=== PATIENT | female | born 1945 | race African-American/Black ===

== ENCOUNTER 2019-04-14 19:26 | Inpatient (IN) | payer MEDICARE, BC ==
[~2019-04-14 19:26] MED LIST: Iopamidol-370 76% 500 ML 1 ML ONE
[2019-04-14] MEDS ORDERED: cefTRIAXone\\ROCEPHIN 1 GM VIAL ONE (20:31)
[2019-04-14 20:52] LABS: ALT (SGPT) 12 U/L (8-55); AST (SGOT) 16 U/L (5-34); Albumin 3.9 g/dL (3.4-4.8); Alkaline Phosphatase 73 U/L (40-110); Anion Gap 17 mmol/L (10-20); BUN (Urea Nitrogen) 13 mg/dL (9.8-20.1); CK (CPK) 111 U/L (29-168); Calc. Creatinine Clearance 0 mL/min (70-130); Calcium 9.2 mg/dL (7.8-10.44); Carbon Dioxide 21 mmol/L (23-31); Chloride 104 mmol/L (98-107); Estimated GFR-MDRD 90; Globulin 3.1 g/dL (2.4-3.5); Glucose 157 mg/dL (83-110); Magnesium 1.4 mg/dL (1.6-2.6); Potassium 3.4 mmol/L (3.5-5.1); Sodium 139 mmol/L (136-145)
[2019-04-14 21:03] LABS: Bacteria/HPF None Seen HPF (None Seen); Bilirubin Negative (Negative); Blood, Urine Negative (Negative); Clarity Clear (Clear); Glucose, Urine (Dipstick) Normal (Negative); Leukocyte Negative Leu/uL (Negative); Nitrite Negative (Negative); Protein, Urine (Dipstick) 30 mg/dL (Neg-Trace); RBC/HPF 0-3 HPF (0-3); Squamous Epithelial None Seen HPF (0-3); Urobilinogen Normal mg/dL (Less than 2); WBC/HPF 0-3 HPF (0-3)
[2019-04-14] MEDS ORDERED: Acetaminophen 500 MG TAB ONE (21:15)
[2019-04-14 21:27] LABS: #Lymphocytes 0.6 thou/uL (1.20-3.40); #Monocytes 0.6 thou/uL (0.11-0.59); #Neutrophils 9.6 thou/uL (1.40-6.50); %Basophils 0.1 % (0.0-1.0); %Eosinophils 0.1 % (0.0-10.0); %Lymphocytes 5.9 % (21.0-51.0); %Monocytes 5.4 % (0.0-10.0); %Neutrophils 88.5 % (42.0-75.0); Hemoglobin 13.5 g/dL (12.0-16.0); Mean Corpuscular HGB CONC 32.7 g/dL (32.0-36.0); Mean Corpuscular Hemoglobin 32.7 pg (27.0-31.0); Mean Corpuscular Volume 99.9 fL (78.0-98.0); Platelet Count 162 thou/uL (130-400); RBC Distribution Width 13.5 % (11.5-14.5); Red Blood Cell (RBC) Count 4.15 mill/uL (4.20-5.40); White Blood Cell (WBC) Count 10.8 thou/uL (4.8-10.8)
--- NOTE | 2019-04-14 21:39 | CT ---
CT Brain WO Con HISTORY: Altered mental status COMPARISON: None. FINDINGS: The ventricular and cisternal system is within normal limits. There are no signs of intrace rebral hemorrhage or extra-axial fluid collections. The mastoid air cells and visualized sinuses are clear. IMPRESSION: No acute intracranial abnormalities.
--- NOTE | 2019-04-14 21:46 | RAD ---
XR Chest 1 View Portable HISTORY: Chest pain status post fall COMPARISON: None. FINDINGS: Heart size is within normal limits. There are atherosclerotic changes of the aorta. The tonya gs are clear of infiltrates. No rib fractures. IMPRESSION: No active intrathoracic disease.
--- NOTE | 2019-04-14 21:47 | RAD ---
XR Pelvis AP STANDARD HISTORY: Fall with right hip pain. COMPARISON: None. FINDINGS: The pelvic ring is intact without evidence of fracture. Minimal arthritic changes of both h ips are seen. There are also arthritic changes of the lumbar spine. IMPRESSION: No evidence of fracture.
--- NOTE | 2019-04-14 21:50 | CT ---
CT Cervical Spine WO Con HISTORY: Fall with neck pain. COMPARISON: None. FINDINGS: The vertebral bodies are normal in height. There is postoperative change. There is a plate and screws which extend from C3 to C6. A bone graft has been placed within the vertebral bodies at C4 and C5. There is marked disc narrowing at C6-7 and C7-T1 levels. There is no evidence of canal maría nosis. Bilateral foraminal narrowing at the C6-7 level, also narrowing of both foramen at the C7-T1 level. There is no CT evidence of fracture. The lung apices are clear. IMPRESSION: No CT evidence of fracture the cervical spine.
--- NOTE | 2019-04-14 21:52 | CT ---
CT Abdomen Pelvis W Con HISTORY: Fall with right-sided pain. COMPARISON: None. FINDINGS: The lung bases show subsegmental atelectatic change. There are mild fatty changes of the li bennie. The spleen is within normal limits. Small hiatal hernia is noted. The pancreas and gallbladder regions appear unremarkable. Right and left adrenal glands and right and left kidneys are normal in size. There is no significant periaortic or mesenteric lymphadenopathy. CT of pelvis performed with contrast: Minimal sigmoid diverticulosis is noted. No free fluid. No frac tures identified. IMPRESSION: 1. No acute findings of abdomen or pelvis.
[2019-04-14 23:18] LABS: Lactic Acid 0.8 mmol/L (0.5-2.2)
[2019-04-15] MEDS ORDERED: Ondansetron PF 4 MG/2 ML Vial IVP PRN (02:09)
[2019-04-15] MEDS ORDERED: Ondansetron ODT 4 MG TAB SL PRN (02:09)
[2019-04-15] MEDS ORDERED: Lactated Ringer's 1,000 ML IV SCH (02:15)
[2019-04-15 02:58] VITALS: BMI 34.4
[2019-04-15] MEDS: Sodium Chloride 0.9% 1,000 ML IV SCH ×2 (03:29→08:22)
[2019-04-15] MEDS: Acetaminophen 325 MG TAB PO PRN ×2 (04:18→16:51)
[2019-04-15] MEDS ORDERED: Dextrose 50% Abboject 50 ML SYRINGE SLOW IVP PRN (04:27)
[2019-04-15] MEDS ORDERED: Dextrose 5% in Water 1,000 ML IV PRN (04:27)
--- NOTE | 2019-04-15 04:31 | PDOC.EVN ---
Event Note - Event Note Event Note: Patient declined an LP in the ED. She says she did not want to have to be in the position with her spine flexed. She now says she would be willing to have an LP.
[2019-04-15 04:40] LABS: #Lymphocytes 1.1 thou/uL (1.20-3.40); #Monocytes 0.6 thou/uL (0.11-0.59); #Neutrophils 9.2 thou/uL (1.40-6.50); %Basophils 0.2 % (0.0-1.0); %Eosinophils 0.2 % (0.0-10.0); %Lymphocytes 10.1 % (21.0-51.0); %Monocytes 5.5 % (0.0-10.0); %Neutrophils 84.1 % (42.0-75.0); Hemoglobin 12.7 g/dL (12.0-16.0); Mean Corpuscular HGB CONC 35.4 g/dL (32.0-36.0); Mean Corpuscular Hemoglobin 35.6 pg (27.0-31.0); Mean Platelet Volume 8.1 fL (7.4-10.4); Platelet Count 123 thou/uL (130-400); RBC Distribution Width 13.4 % (11.5-14.5); Red Blood Cell (RBC) Count 3.56 mill/uL (4.20-5.40)
[2019-04-15 04:50] LABS: Anion Gap 17 mmol/L (10-20); BUN (Urea Nitrogen) 8 mg/dL (9.8-20.1); Calc. Creatinine Clearance 116 mL/min (70-130); Calcium 8.3 mg/dL (7.8-10.44); Carbon Dioxide 19 mmol/L (23-31); Chloride 108 mmol/L (98-107); Estimated GFR-MDRD Greater than 90; Glucose 138 mg/dL (83-110); Potassium 3.6 mmol/L (3.5-5.1); Sodium 140 mmol/L (136-145)
[2019-04-15 04:59] LABS: Lactic Acid 2.7 mmol/L (0.5-2.2)
[2019-04-15] MEDS: Cefepime 2 GM in Sodium Chloride 0.9% 100 ML IVPB SCH ×2 (05:20→14:57)
--- NOTE | 2019-04-15 05:40 | HP ---
CHIEF COMPLAINT: Altered mental status and fall. HISTORY OF PRESENT ILLNESS: This patient is a 74-year-old female, who presented via the emergency department. The patient is originally from this area, but currently lives in [place]. She was here visiting family. She was at her sister's home. Apparently, had a fall within the shower. It sounds like she did not actually go all the way to the ground and was able to catch herself, but could not get out and her family friend was not able to get her up out of the bath tub, so they called for an ambulance. The patient's sister reported that she has not been acting herself and seems to be a bit awkward through the day. The patient herself believes that is the case as well. She believes it was true earlier. She does not really fully remember the events of the day, but feels like she is 90% back to her baseline at this time. The patient was initially taken to the emergency department. She was placed in a C-collar and she reports some right hip pain. She had multiple imaging included a CT head, neck, chest, abdomen plain films of the lower extremities. In the emergency department, the patient was noted to be febrile and she received 2 L of fluid of vancomycin and Rocephin. REVIEW OF SYSTEMS: The patient has had a fluctuating appetite. She drinks Atkins drinks several times a day rather than eating normal meals. She also states that she tries to go to the gym for exercise, but will go for long stretches over weeks, where she feels generally weak and is unable to do that. She also tends to have more loose stools than she would consider to be normal. All other systems reviewed. All pertinent positives and negatives otherwise, noted in HPI. PAST MEDICAL HISTORY: Diabetes, hyperlipidemia, chronic pain, some intermittent depression. She also has a history of a C-spine surgery in 2001 that subsequently caused severe infection and sounds like possibly sepsis. She was critically ill and was apparently on the ventilator with discussions about the trach. She believes this was a staph infection and subsequent to that, she has been kept on amoxicillin daily since that time for what sounds like suppression. Hypothyroidism. PAST SURGICAL HISTORY: Hysterectomy, appendectomy, and C-spine fusion with hardware. FAMILY HISTORY: Mother had breast cancer. Father had pancreatic cancer. SOCIAL HISTORY: She is a nonsmoker, nondrinker, and nondrug user. She is single and . She is a full code. Her daughter, Santo would be her surrogate decision maker should that become necessary. PHYSICAL EXAMINATION: VITAL SIGNS: The patient had a temperature of 102.6 when she was in the emergency department. Most recent vitals, temperature is 98.6, pulse 76, respirations 18, O2 saturation 96% on room air, BP is 136/73. GENERAL APPEARANCE: Age-appropriate female, no distress. Pleasant, cooperative. HEENT: JOE. She has a pinguecula or pterygium over the left medial limbus. She has no OP lesions. NECK: Supple and symmetric. HEART: Regular rate and rhythm. LUNGS: Clear to auscultation bilaterally with good chest wall expansion and air exchange. ABDOMEN: Soft, nontender, and nondistended with positive bowel sounds. No masses. No organomegaly. EXTREMITIES: Have no cyanosis, clubbing, or edema. PSYCHIATRIC: The patient does continue to appear to be very slightly confused, although conversant and appropriate. NEUROLOGIC: She moves all extremities appropriately other than being slightly confused about the situation today. She generally appears cognitively intact with normal speech and cranial nerves are functioning normally. LABORATORY DATA: White count 10.8, hemoglobin 13.5, platelets 162. Sodium 139, potassium 3.4, chloride 104, CO2 is 21, BUN is 13, creatinine 0.76, glucose 175, lactic acid 3.0, calcium 9.2, Magnesium is 1.4, AST 16, ALT 12, CK is 111. Urinalysis shows trace protein, trace ketones, otherwise negative. Flu screen negative and as above. CT abdomen and pelvis, CT C-spine plain films of the pelvis and chest were negative and CT of the brain is negative. IMPRESSION AND PLAN: 1. Febrile illness with some altered mental status/acute metabolic encephalopathy. The patient has no specific symptomatology to suggest a source of infection. Her being altered and encephalopathic a bit may be related to any underlying infection. However, given the history of the C-spine hardware with infection, I am concerned that there is a possibility that there could be some relation to that, although CT scan showed no specific evidence of abscess or osteomyelitis. She has been given vancomycin and cefepime. We will continue those for the time being. We will continue to follow up on the blood cultures. We will need to repeat the CBC. Currently, she has high normal white blood cell count, which is not significantly helpful. However, it is possible that this could still be a viral illness. She denies any ill contacts and she also has no nuchal rigidity. Urine is clear and chest x-ray is clear. 2. Diabetes mellitus. We will place her on a diabetic diet with Accu-Cheks and sliding scale. 3. Hyperlipidemia. Continue atorvastatin. 4. Hypothyroidism. Continue with her Synthroid. Job ID: [id number]
[2019-04-15] MEDS ORDERED: Vancomycin HCl 1 GM in Premix Bag 1 BAG IVPB SCH ×2 (08:00→09:00)
[2019-04-15] MEDS ORDERED: Cefepime 2 GM in Sodium Chloride 0.9% 100 ML IVPB SCH (09:00)
[2019-04-15] MEDS: HYDROcodone/Acetaminophen 5/325 mg Tablet PO PRN ×3 (09:22→20:01)
[2019-04-15] MEDS: Benzonatate 100 MG CAP PO PRN (13:53)
--- NOTE | 2019-04-15 14:57 | CON ---
DATE OF CONSULTATION: 04/15/2019 REASON FOR CONSULTATION: Fever. HISTORY OF PRESENT ILLNESS: A 74-year-old with history of type 2 diabetes, hypothyroidism, and neck injury of about 18 years ago, which required fusion. Reportedly, the patient developed infection of the wound site following the intervention in 2001 and required IV and followed by chronic suppression with oral amoxicillin, which she has been taking twice daily since 2001 without fail. 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 She had a little bit of injury in the right shoulder, was brought to the emergency room. Initial temperature 102.6, pulse 75, blood pressure 176/69, and O2 saturation 95. She had a neck collar in place. A little bit of tenderness in the abdomen, mostly in the lower abdomen. The right hip was a little bit tender. Neck was not tender. Other findings; white cell count 10.8, hemoglobin 13.5, platelets 162, and 88% neutrophils. Sodium 139, creatinine 0.76, glucose 157, and magnesium 1.4. Liver profile normal. Albumin 3.9. Urinalysis was completely normal except for protein of 30. The patient had a number of imaging studies including abdomen and pelvis CT, chest x-ray, and brain CT, none of those showed any significant abnormality. Currently, Ms. Jorgensen is shivering in bed. She is awake and oriented. Follows commands. Family is in the room with her. She denies any headaches. No visual symptoms, sore throat, odynophagia, or dysphagia. No dental pain. Little bit of upper back pain, which is somewhat chronic. No neck pain. Little bit of right shoulder pain. She has noticed persistent coughing spells over the past few days, sometimes which she describes as a beige sputum. Some rhinorrhea. No ear pain. No chest pain or dyspnea. No abdominal pain. No dysuria or frequency. The patient has intermittent loose stools, which she associates with the amoxicillin. No other joint symptoms. She had transient confusional state, which has resolved after admission. PAST MEDICAL HISTORY: Type 2 diabetes, hypothyroidism, injury while exiting in an elevator while at work in 2001, which forced her to have a neck fusion in 2001. Postop infection of the neck fusion, which required IV antimicrobials and protracted suppressive amoxicillin, which she has been taking since 2001. She had a hysterectomy. ALLERGIES: NONE. MEDICATIONS: Currently, she is receiving; 1. Tylenol. 2. Centuria. 3. Alogliptin. 4. Lipitor. 5. Tessalon. 6. Os-Jose. 7. Cefepime. 8. Gabapentin. 9. Vancomycin. PHYSICAL EXAMINATION: VITAL SIGNS: T-max 102.2 now 98.1, blood pressure 113/67, pulse 60, respirations 18, and O2 saturation 96. SKIN: Normal. There is no lymphadenopathy. HEENT: Ocular movements conjugate. Sclerae white. Pupils are equal. Conjunctivae normal. Oral cavity still with quite a few teeth in place with some decay. Mild oropharyngeal erythema. Nasal passages are patent. Ear exam normal. LUNGS: Symmetric air entry without obvious crackles or wheezing. HEART: S1 and S2. Regular rate without murmurs. No S3 or S4. ABDOMEN: Soft, not distended or tender. No ascites. No bladder distention. EXTREMITIES: No joint inflammatory activity noted. Pulses are 1+ in dorsalis pedis. Strength in upper and lower extremities are preserved. Plantar responses are flexor. NEUROLOGIC: She is oriented, follows commands. Speech appears to be normal. LABORATORY DATA: The labs have been reviewed above. Thus far, microbiology with negative influenza A and B direct antigen. Negative blood cultures to-date and urine culture no growth at 24 hours. ASSESSMENT: Type 2 diabetes, prior neck fusion many years ago on chronic suppressive amoxicillin, and new onset of respiratory symptoms with fever. DISCUSSION: Differential diagnosis includes a viral infection, particularly respiratory virus versus bacteremia from a not yet disclosed site. We will check respiratory virus PCR. Monitor blood cultures. If they remain negative, may consider discontinuing antimicrobial therapy. We will see what the results of the respiratory virus panel turns out to be. Other possibilities would be a hidden malignancy or autoimmune process, but that will only be considered if this clinical problem persists without a resolution. Job ID: [id number]
[2019-04-15] MEDS: HumaLOG 300 UNITS/3 ML VIAL SC PRN (15:05)
[2019-04-15] MEDS ORDERED: Mometasone/Formoterol 120 PUFF INHALER INH SCH (15:30)
[2019-04-15] MEDS: Mometasone/Formoterol 120 PUFF INHALER INH SCH ×2 (16:11→18:41)
[2019-04-15] MEDS: metFORMIN 500 MG TAB PO SCH ×2 (16:33→19:56)
[2019-04-15] MEDS: Atorvastatin Calcium 40 MG TAB PO SCH (19:37)
--- NOTE | 2019-04-15 19:41 | PDOC.EVN ---
Event Note - Event Note Event Note: Called by RN for patient stating she takes gabapentin 400 mg twice daily -order changed.
[2019-04-15] MEDS: Gabapentin 400 MG CAP PO SCH (19:56)
[2019-04-15] MEDS ORDERED: Vancomycin HCl 1.25 GM in Sodium Chloride 0.9% 250 ML 250 ML IVPB SCH (20:00)
[2019-04-15] MEDS: Estradiol 1 MG TAB PO SCH (20:09)
[2019-04-15] MEDS ORDERED: metFORMIN 500 MG TAB PO SCH (20:15)
[2019-04-16] MEDS: Cefepime 2 GM in Sodium Chloride 0.9% 100 ML IVPB SCH ×2 (05:04→16:15)
[2019-04-16] MEDS: Levothyroxine Sodium 112 MCG TAB PO SCH (05:04)
[2019-04-16] MEDS: HYDROcodone/Acetaminophen 5/325 mg Tablet PO PRN ×2 (05:05→17:06)
[2019-04-16] MEDS: Sodium Chloride 0.9% 1,000 ML IV SCH ×2 (05:14→16:16)
[2019-04-16] MEDS: Mometasone/Formoterol 120 PUFF INHALER INH SCH (06:49)
[2019-04-16 07:20] LABS: Vancomycin, Trough 14.2 ug/mL
[2019-04-16] MEDS ORDERED: Vancomycin 1.5 GRAM/300 ML BAG 1.5 GM in Premix Bag 1 BAG IVPB SCH (08:00)
[2019-04-16] MEDS ORDERED: Gabapentin 400 MG CAP PO SCH (09:00)
--- NOTE | 2019-04-16 09:59 | RAD ---
FLUOROSCOPICALLY GUIDED LUMBAR PUNCTURE: HISTORY: Infection. CSF analysis required COMPARISON: None. EXPOSURE: 0.4 minutes, 88.1 mcg/m2. FINDINGS: Two-view single needle operator lumbar spine radiograph demonstrates 5 lumbar-type vertebrae. Vertebral body height is maintained. No fracture. Degenerative changes of the posterior elements at the lumbosacral region. Successful lumbar puncture. Total of 9 cc of clear CSF was acquired. No immediate or postprocedure co mplications. TECHNIQUE: Consent obtained to perform a lumbar puncture with fluoroscopic guidance. The L2-L3 level was deemed appropriate. Skin was prepped and draped in sterile fashion. 1% lidocaine, buffered with sodium bicarbonate was used for local anesthesia. Under fluoroscopic guidance, 22-gauge spinal needle was ad vanced into the CSF space. A total of 9 cc of clear CSF was collected. Patient tolerated the procedure well. No immediate or post procedure complication. IMPRESSION: Successful lumbar puncture. Transcribed Date/Time: 04/16/2019 10:06 AM
[2019-04-16 10:01] LABS: Unspun CSF Color COLORLESS (Colorless)
[2019-04-16 10:02] LABS: Color Of CSF Supernatant COLORLESS (Colorless); Tube # 2
[2019-04-16 10:09] LABS: CSF, Glucose 86 mg/dl (40-70); CSF, Protein 33 mg/dL (15-40)
[2019-04-16] MEDS: Alogliptin 25 MG TAB PO SCH (10:09)
[2019-04-16] MEDS: Estradiol 1 MG TAB PO SCH ×2 (10:09→21:04)
[2019-04-16] MEDS: metFORMIN 500 MG TAB PO SCH ×2 (10:09→16:15)
[2019-04-16] MEDS: Gabapentin 400 MG CAP PO SCH ×2 (10:09→21:05)
[2019-04-16] MEDS: Calcium Carbonate 500 MG TAB PO SCH (10:09)
[2019-04-16 10:12] LABS: CSF Source CSF; Clarity Clear (Clear); Tube # 4
[2019-04-16 10:13] LABS: RBC Count - Manual 0 /cumm (None Seen); WBC/NonHematics Count - Manual 0 /cumm (0-5)
[2019-04-16] MEDS: Benzonatate 100 MG CAP PO PRN ×2 (10:19→16:15)
--- NOTE | 2019-04-16 10:28 | PDOC.HOSPP ---
- Subjective Encounter Date: 04/16/19 Encounter Time: 11:00 Subjective: fever is subsiding, has cough which is mostly dry - Objective Vital Signs & Weight: Vital Signs (12 hours) Temp Pulse Resp BP BP Pulse Ox 04/16/19 08:00 97 04/16/19 07:26 98.9 F 63 18 133/69 97 04/16/19 06:49 73 16 93 L 04/16/19 04:53 99.2 F 69 16 120/61 93 L 04/16/19 00:00 98.7 F 60 16 103/49 L 93 L Weight Weight 200 lb 9.93 oz I&O: 04/15/19 04/16/19 04/17/19 06:59 06:59 06:59 Intake Total 1175 Balance 1175 Result Diagrams: 04/15/19 04:20 04/15/19 04:20 Additional Labs: Accuchecks 04/16/19 04/15/19 04/15/19 04:51 20:03 16:24 POC Glucose 124 H 136 H 181 H 04/15/19 11:49 POC Glucose 223 H Hospitalist ROS - Medication Medications: Active Medications Generic Name Dose Route Start Last Admin Trade Name Freq PRN Reason Stop Dose Admin Acetaminophen 650 mg 04/15/19 04:09 04/15/19 16:51 Tylenol PO 650 mg Q6H PRN Administration .FEVER Hydrocodone Bitart/Acetaminophen 1 tab 04/15/19 08:35 04/16/19 05:05 [place] 5/325 PO 1 tab Q6H PRN Administration Moderate to Severe Pain (6-10) Alogliptin Benzoate 25 mg 04/16/19 09:00 04/16/19 10:09 Alogliptin PO 25 mg DAILY MARTHA Administration Atorvastatin Calcium 40 mg 04/15/19 21:00 04/15/19 19:37 Lipitor PO 40 mg HS MARTHA Administration Benzonatate 100 mg 04/15/19 12:50 04/16/19 10:19 Tessalon PO 100 mg TIDPRN PRN Administration Cough Calcium Carbonate 500 mg 04/16/19 09:00 04/16/19 10:09 Oscal-500 PO 500 mg DAILY MARTHA Administration Estradiol 1 mg 04/15/19 21:00 04/16/19 10:09 Estrace PO 1 mg BID MARTHA Administration Gabapentin 400 mg 04/15/19 21:00 04/16/19 10:09 Neurontin PO 400 mg BID MARTHA Administration Sodium Chloride 1,000 mls @ 75 mls/hr 04/15/19 02:45 04/16/19 05:14 Normal Saline 0.9% IV 1,000 mls .[id number] MARTHA Administration Cefepime HCl 2 gm/ Sodium 100 mls @ 200 mls/hr 04/15/19 05:00 04/16/19 05:04 Chloride IVPB 100 mls 0500,1700 MARTHA Administration Vancomycin HCl 1.5 gm/ Device 300 mls @ 200 mls/hr 04/16/19 08:00 04/16/19 10 :08 IVPB 300 mls 0800,2000 MARTHA Administration Insulin Human Lispro 0 units 04/15/19 04:27 04/15/19 15:05 Humalog SC 3 unit .MILD SLIDING SCALE PRN Administration Mild Correctional Scale Levothyroxine Sodium 112 mcg 04/16/19 06:00 04/16/19 05:04 Synthroid PO 112 mcg 0600 MARTHA Administration Metformin HCl 500 mg 04/16/19 08:00 04/16/19 10:09 Glucophage PO 500 mg BID-WM MARTHA Administration Mometasone Furoate/Formoterol Fumar 1 puff 04/15/19 18:30 04/16/19 06:49 Dulera 200 Mcg/5 Mcg Inhaler INH 1 puff BID-RT MARTHA Administration - Exam General Appearance: awake alert Eye: PERRL, anicteric sclera ENT: no oropharyngeal lesions, moist mucosa Neck: supple, no JVD Heart: RRR, no murmur Respiratory: no wheezes, no rales Gastrointestinal: soft, non-tender, non-distended, normal bowel sounds Extremities: no cyanosis, no edema Neurological: cranial nerve grossly intact, no focal deficits Psychiatric: normal affect, A&O x 3 Hosp A/P (1) Fever Code(s): R50.9 - FEVER, UNSPECIFIED Status: Acute Qualifiers: Fever type: unspecified Qualified Code(s): R50.9 - Fever, unspecified (2) DM type 2 (diabetes mellitus, type 2) Status: Chronic Qualifiers: Diabetes mellitus petroleum terminal plant operator insulin use: without petroleum terminal plant operator use (3) Hypothyroidism Code(s): E03.9 - HYPOTHYROIDISM, UNSPECIFIED Status: Chronic Qualifiers: Hypothyroidism type: unspecified Qualified Code(s): E03.9 - Hypothyroidism , unspecified (4) Obesity (BMI 30.0-34.9) Code(s): E66.9 - OBESITY, UNSPECIFIED Status: Chronic - Plan is on vanc and cefipime blood, urine cultures are -ve csf no signs of infection viral pcr is -ve iv fluids, lipitor, alogliptin, metformin, neurontin and synthroid hemostable
[2019-04-16] MEDS: Guaifenesin DM 100-10/5 ML UDCUP PO PRN ×2 (10:44→18:51)
[2019-04-16] MEDS: Albuterol Sulfate 1.25 MG/3 ML NEB NEB SCH ×2 (12:34→23:27)
--- NOTE | 2019-04-16 17:09 | PQF ---
CLINICAL DOCUMENTATION IMPROVEMENT CLARIFICATION FORM: ICD-10 Updated PLEASE DO AN ADDENDUM TO THE PROGRESS NOTE WITH ANY DOCUMENTATION UPDATES OR ADDITIONS AND CARRY THROUGH TO DC SUMMARY. THANK YOU. DATE: 04/16/19 ATTN: DR. RAMIREZ Please exercise your independent, professional judgment in responding to the clarification form. Clinical indicators are provided on the bottom of this form for your review Please check appropriate box(s) to clarify if the following diagnosis has been ruled in or ruled out: "SEPSIS" [ x] Ruled in diagnosis [ x] Continue to treat [ ] Resolved [ ] Ruled out diagnosis [ ] Cannot rule out diagnosis [ x ] Other diagnosis Pna on zithromax now [ ] Unable to determine In addition, please specify: Present on Admission (POA): [ x ] Yes [ ] No [ ] Unable to determine For continuity of documentation, please document condition throughout progress notes and discharge summary. Thank You. CLINICAL INDICATORS - SIGNS / SYMPTOMS / LABS / RESULTS AND LOCATION IN MR ER NOTE: "SEPSIS WITHOUT SOURCE" RR 26 TEMP 102.6 LACTIC ACID 04/14: 3.0 WBC 04/15: 11.0 RISKS: H/O DIABETES (PROGRESS NOTE 04/16) H/O POSTOP NECK INFECTION (CONSULTATION REPORT 04/15) NEW ONSET OF RESPIRATORY SYMPTOMS (CONSULTATION REPORT 04/15) TREATMENT: LUMBAR PUNCTURE IV VANCOMYCIN (ER-PRESENT) IV FLUIDS (ER-PRESENT) IV ROCEPHIN (ER) IV CEFEPIME (04/15-PRESENT) BLOOD AND URINE CULTURES (04/14) SPINAL FLUID CULTURES (04/16) ID CONSULT (04/15) (This form is maintained as a part of the permanent medical record) 2014 [employer]. All Rights Reserved [email or web address] [email or web address] Office: [phone] PONCHO
--- NOTE | 2019-04-16 18:11 | PRG ---
DATE OF SERVICE: 04/16/2019 SUBJECTIVE: The patient coughing still, not a lot of sputum production. No headaches. Some neck pain and upper thoracic spine pain, not much different than what she always has. No abdominal pain or diarrhea. OBJECTIVE: VITAL SIGNS: T-max 102.9 yesterday at 4:00 p.m., blood pressure 140 /70, pulse 76, respirations 14 to 20, and O2 saturation 93% to 100%. HEENT: Ocular movements conjugate. GENERAL: Awake, alert, oriented, follows commands. LUNGS: With worsening inspiratory crackles in the right upper lung field posteriorly, which were not present yesterday. HEART: S1 and S2, regular rate. ABDOMEN: Soft. Not distended or tender. LABORATORY DATA: Sodium 140, creatinine 0.6. White cell count is 11, platelets 123 with 84% neutrophils. CSF evaluation was done, was ordered and was essentially normal. The respiratory virus PCR panel was negative. ASSESSMENT AND DISCUSSION: Type 2 diabetes, neck fusion on chronic suppressive amoxicillin, respiratory symptoms with fever. Now, there are clear-cut abnormal lung exam findings. We will go ahead and order a CT of chest since the original chest x-ray did not show any infiltrates. Most likely, she has a respiratory tract infection, likely bacterial. Discontinue vancomycin and add azithromycin. Job ID: [id number] MTDD
[2019-04-16] MEDS: Azithromycin 500 MG in Sodium Chloride 0.9% 250 ML 250 ML IVPB SCH (18:51)
--- NOTE | 2019-04-16 19:33 | CT ---
CT THORAX WITHOUT IV CONTRAST: HISTORY: Abnormal lung exam. Cough for a couple days. COMPARISON: None. FINDINGS: There are reticulonodular densities as well as patchy densities seen in the right perihilar location, predominantly in the right upper lobe, which may be related to an infectious process. Minimal patchy , nodular densities are also seen in the left perihilar location. Small bilateral pleural effusions are identified. A calcified subcarinal lymph node is present. There is limited evaluation of the mediastinal structures secondary to the lack of intravenous contra st however there is question of a mildly enlarged precarinal lymph node, measuring 12 mm in short axi s dimension. Vascular calcifications are seen in the thoracic aorta. Trace pericardial effusion is present. Calcified granulomata are seen in the spleen. There is elevation of the right hemidiaphragm. A calcified granuloma is seen in the left lower lobe. Degenerative changes are seen in the spine. No suspicious lytic or sclerotic osseous lesions are iden tified. IMPRESSION: 1. Reticulonodular densities as well as mild patchy irregular densities seen in the perihilar regions bilaterally, greater involving the right upper lobe, which may be related to an infectious process. Followup to resolution is recommended. 2. Small bilateral pleural effusions. 3. Limited evaluation for lymphadenopathy due to lack of intravenous contrast, but there is suggestio n of a mildly prominent subcarinal lymph node which may be reactive in origin. POS: [facility]
[2019-04-16] MEDS: Atorvastatin Calcium 40 MG TAB PO SCH (21:04)
[2019-04-17] MEDS: Benzonatate 100 MG CAP PO PRN ×2 (03:56→13:59)
[2019-04-17] MEDS: Guaifenesin DM 100-10/5 ML UDCUP PO PRN ×2 (05:11→18:38)
[2019-04-17] MEDS: Levothyroxine Sodium 112 MCG TAB PO SCH (05:12)
[2019-04-17] MEDS: Cefepime 2 GM in Sodium Chloride 0.9% 100 ML IVPB SCH ×2 (05:12→16:41)
[2019-04-17] MEDS: Sodium Chloride 0.9% 1,000 ML IV SCH ×2 (05:15→20:35)
[2019-04-17] MEDS: HYDROcodone/Acetaminophen 5/325 mg Tablet PO PRN ×2 (06:26→18:03)
[2019-04-17] MEDS: Mometasone/Formoterol 120 PUFF INHALER INH SCH ×2 (07:07→18:57)
[2019-04-17] MEDS: Albuterol Sulfate 1.25 MG/3 ML NEB NEB SCH ×3 (07:09→21:58)
[2019-04-17] MEDS: Gabapentin 400 MG CAP PO SCH ×2 (08:47→20:35)
[2019-04-17] MEDS: Calcium Carbonate 500 MG TAB PO SCH (08:48)
[2019-04-17] MEDS: Alogliptin 25 MG TAB PO SCH (08:48)
[2019-04-17] MEDS: Estradiol 1 MG TAB PO SCH ×2 (08:48→20:35)
[2019-04-17] MEDS: metFORMIN 500 MG TAB PO SCH ×2 (08:48→16:46)
--- NOTE | 2019-04-17 11:43 | PDOC.HOSPP ---
- Subjective Encounter Date: 04/17/19 Encounter Time: 07:50 Subjective: cough is better, no sob has not ambulated much except going to commode next to her bed - Objective Vital Signs & Weight: Vital Signs (12 hours) Temp Pulse Resp BP Pulse Ox 04/17/19 07:43 94 L 04/17/19 07:26 98.6 F 69 20 152/73 H 04/17/19 07:09 67 18 92 L 04/17/19 07:07 67 18 92 L 04/17/19 04:27 98.8 F Weight Weight 200 lb 9.93 oz I&O: 04/16/19 04/17/19 04/18/19 06:59 06:59 06:59 Intake Total 1175 1300 Balance 1175 1300 Result Diagrams: 04/15/19 04:20 04/15/19 04:20 Additional Labs: Accuchecks 04/17/19 04/16/19 04/16/19 04:28 20:16 17:11 POC Glucose 111 H 116 H 118 H 04/16/19 11:14 POC Glucose 118 H Hospitalist ROS - Medication Medications: Active Medications Generic Name Dose Route Start Last Admin Trade Name Freq PRN Reason Stop Dose Admin Acetaminophen 650 mg 04/15/19 04:09 04/15/19 16:51 Tylenol PO 650 mg Q6H PRN Administration .FEVER Hydrocodone Bitart/Acetaminophen 1 tab 04/15/19 08:35 04/17/19 06:26 [place] 5/325 PO 1 tab Q6H PRN Administration Moderate to Severe Pain (6-10) Albuterol Sulfate 1.25 mg 04/16/19 15:00 04/17/19 07:09 Albuterol Sulfate NEB 1.25 mg [id number] MARTHA Administration Alogliptin Benzoate 25 mg 04/16/19 09:00 04/17/19 08:48 Alogliptin PO 25 mg DAILY MARTHA Administration Atorvastatin Calcium 40 mg 04/15/19 21:00 04/16/19 21:04 Lipitor PO 40 mg HS MARTHA Administration Benzonatate 100 mg 04/15/19 12:50 04/17/19 03:56 Tessalon PO 100 mg TIDPRN PRN Administration Cough Calcium Carbonate 500 mg 04/16/19 09:00 04/17/19 08:48 Oscal-500 PO 500 mg DAILY MARTHA Administration Estradiol 1 mg 04/15/19 21:00 04/17/19 08:48 Estrace PO 1 mg BID MARTHA Administration Gabapentin 400 mg 04/15/19 21:00 04/17/19 08:47 Neurontin PO 400 mg BID MARTHA Administration Guaifenesin/Dextromethorphan 15 ml 04/16/19 10:06 04/17/19 05:11 Robitussin Dm PO 15 ml Q4H PRN Administration Cough Sodium Chloride 1,000 mls @ 75 mls/hr 04/15/19 02:45 04/17/19 05:15 Normal Saline 0.9% IV 1,000 mls .[id number] MARTHA Administration Cefepime HCl 2 gm/ Sodium 100 mls @ 200 mls/hr 04/15/19 05:00 04/17/19 05:12 Chloride IVPB 100 mls 0500,1700 MARTHA Administration Azithromycin 500 mg/ Sodium 250 mls @ 250 mls/hr 04/16/19 18:00 04/16/19 18: 51 Chloride IVPB 250 mls Q24HR MARTHA Administration Insulin Human Lispro 0 units 04/15/19 04:27 04/15/19 15:05 Humalog SC 3 unit .MILD SLIDING SCALE PRN Administration Mild Correctional Scale Levothyroxine Sodium 112 mcg 04/16/19 06:00 04/17/19 05:12 Synthroid PO 112 mcg 0600 MARTHA Administration Metformin HCl 500 mg 04/16/19 08:00 04/17/19 08:48 Glucophage PO 500 mg BID-WM MARTHA Administration Mometasone Furoate/Formoterol Fumar 1 puff 04/15/19 18:30 04/17/19 07:07 Dulera 200 Mcg/5 Mcg Inhaler INH 1 puff BID-RT MARTHA Administration - Exam General Appearance: NAD, awake alert Eye: PERRL, anicteric sclera ENT: no oropharyngeal lesions, moist mucosa Neck: supple, no JVD Heart: RRR, no murmur Respiratory: no wheezes, no rales, rhonchi Gastrointestinal: soft, non-tender, non-distended, normal bowel sounds Extremities: no cyanosis, no edema Neurological: cranial nerve grossly intact, no focal deficits Psychiatric: normal affect, A&O x 3 Hosp A/P (1) PNA (pneumonia) Code(s): J18.9 - PNEUMONIA, UNSPECIFIED ORGANISM Status: Acute Plan: cap (2) DM type 2 (diabetes mellitus, type 2) Status: Chronic 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 blood, urine cultures are -ve csf no signs of infection viral pcr is -ve iv fluids, lipitor, alogliptin, metformin, neurontin and synthroid hemostable PT eval, to amb as tolerated dc plan in am if ambulating well
[2019-04-17] MEDS: HumaLOG 300 UNITS/3 ML VIAL SC PRN (12:05)
--- NOTE | 2019-04-17 17:11 | PRG ---
DATE OF SERVICE: 04/17/2019 SUBJECTIVE: Feeling a little better, not as much coughing spells. No sputum production. No headaches. Neck pain is better. No abdominal pain or diarrhea. OBJECTIVE: VITAL SIGNS: Continues with normal temperature, BP 150/73, pulse 69. LUNGS: Crackles in the right side. HEART: S1 and S2, regular rate. ABDOMEN: Soft and not distended. NEUROLOGIC: Nonfocal. LABORATORY DATA: White cell count 11,000, hemoglobin 12.7, and creatinine 0.6. No new microbiology information. ASSESSMENT AND DISCUSSION: Type 2 diabetes, neck fusion, on chronic suppressive amoxicillin, and cough and fever, now with proven pneumonia in the upper lobes, right and left sides. Continue cefepime and azithromycin. Discharge planning with levofloxacin, maybe tomorrow or day after. Job ID: [id number]
[2019-04-17] MEDS: Azithromycin 500 MG in Sodium Chloride 0.9% 250 ML 250 ML IVPB SCH (17:55)
[2019-04-17] MEDS: Atorvastatin Calcium 40 MG TAB PO SCH (20:35)
[2019-04-18] MEDS: Guaifenesin DM 100-10/5 ML UDCUP PO PRN ×3 (05:11→19:30)
[2019-04-18] MEDS: Benzonatate 100 MG CAP PO PRN ×2 (05:11→19:29)
[2019-04-18] MEDS: Levothyroxine Sodium 112 MCG TAB PO SCH (05:12)
[2019-04-18] MEDS: Cefepime 2 GM in Sodium Chloride 0.9% 100 ML IVPB SCH ×2 (05:12→17:31)
[2019-04-18] MEDS: HYDROcodone/Acetaminophen 5/325 mg Tablet PO PRN ×2 (05:12→19:30)
[2019-04-18] MEDS: Mometasone/Formoterol 120 PUFF INHALER INH SCH ×2 (08:08→18:44)
[2019-04-18] MEDS: Albuterol Sulfate 1.25 MG/3 ML NEB NEB SCH (08:08)
[2019-04-18] MEDS: Calcium Carbonate 500 MG TAB PO SCH (09:05)
[2019-04-18] MEDS: Gabapentin 400 MG CAP PO SCH ×2 (09:05→19:30)
[2019-04-18] MEDS: metFORMIN 500 MG TAB PO SCH ×2 (09:05→17:31)
[2019-04-18] MEDS: Estradiol 1 MG TAB PO SCH ×2 (09:05→19:30)
[2019-04-18] MEDS: Alogliptin 25 MG TAB PO SCH (09:05)
--- NOTE | 2019-04-18 11:15 | PDOC.HOSPP ---
- Subjective Encounter Date: 04/18/19 Encounter Time: 09:30 Subjective: no sob or cough feels better she is ambulating in room - Objective Vital Signs & Weight: Vital Signs (12 hours) Temp Pulse Resp BP Pulse Ox 04/18/19 07:32 98.2 F 61 18 121/68 91 L 04/18/19 07:29 92 L Weight Weight 200 lb 9.93 oz I&O: 04/17/19 04/18/19 04/19/19 06:59 06:59 06:59 Intake Total 1300 2075 Balance 1300 2075 Result Diagrams: 04/15/19 04:20 04/15/19 04:20 Additional Labs: Accuchecks 04/18/19 04/17/19 04/17/19 05:26 19:56 17:03 POC Glucose 155 H 186 H 109 04/17/19 11:13 POC Glucose 153 H Hospitalist ROS - Medication Medications: Active Medications Generic Name Dose Route Start Last Admin Trade Name Freq PRN Reason Stop Dose Admin Acetaminophen 650 mg 04/15/19 04:09 04/15/19 16:51 Tylenol PO 650 mg Q6H PRN Administration .FEVER Hydrocodone Bitart/Acetaminophen 1 tab 04/15/19 08:35 04/18/19 05:12 [place] 5/325 PO 1 tab Q6H PRN Administration Moderate to Severe Pain (6-10) Albuterol Sulfate 1.25 mg 04/16/19 15:00 04/18/19 08:08 Albuterol Sulfate NEB Not Given [id number] MARTHA Alogliptin Benzoate 25 mg 04/16/19 09:00 04/18/19 09:05 Alogliptin PO 25 mg DAILY MARTHA Administration Atorvastatin Calcium 40 mg 04/15/19 21:00 04/17/19 20:35 Lipitor PO 40 mg HS MARTHA Administration Benzonatate 100 mg 04/15/19 12:50 04/18/19 05:11 Tessalon PO 100 mg TIDPRN PRN Administration Cough Calcium Carbonate 500 mg 04/16/19 09:00 04/18/19 09:05 Oscal-500 PO 500 mg DAILY MARTHA Administration Estradiol 1 mg 04/15/19 21:00 04/18/19 09:05 Estrace PO 1 mg BID MARTHA Administration Gabapentin 400 mg 04/15/19 21:00 04/18/19 09:05 Neurontin PO 400 mg BID MARTHA Administration Guaifenesin/Dextromethorphan 15 ml 04/16/19 10:06 04/18/19 05:11 Robitussin Dm PO 15 ml Q4H PRN Administration Cough Cefepime HCl 2 gm/ Sodium 100 mls @ 200 mls/hr 04/15/19 05:00 04/18/19 05:12 Chloride IVPB 100 mls 0500,1700 MARTHA Administration Azithromycin 500 mg/ Sodium 250 mls @ 250 mls/hr 04/16/19 18:00 04/17/19 17: 55 Chloride IVPB 250 mls Q24HR MARTHA Administration Insulin Human Lispro 0 units 04/15/19 04:27 04/17/19 12:05 Humalog SC 2 unit .MILD SLIDING SCALE PRN Administration Mild Correctional Scale Levothyroxine Sodium 112 mcg 04/16/19 06:00 04/18/19 05:12 Synthroid PO 112 mcg 0600 MARTHA Administration Metformin HCl 500 mg 04/16/19 08:00 04/18/19 09:05 Glucophage PO 500 mg BID-WM MARTHA Administration Mometasone Furoate/Formoterol Fumar 1 puff 04/15/19 18:30 04/18/19 08:08 Dulera 200 Mcg/5 Mcg Inhaler INH Not Given BID-RT MARTHA - Exam General Appearance: awake alert Eye: PERRL, anicteric sclera ENT: no oropharyngeal lesions, moist mucosa Neck: supple, no JVD Heart: RRR, no murmur Respiratory: no wheezes, no rales Gastrointestinal: soft, non-tender, non-distended, normal bowel sounds Extremities: no cyanosis, no edema Neurological: cranial nerve grossly intact, no focal deficits Psychiatric: normal affect, A&O x 3 Hosp A/P (1) PNA (pneumonia) Code(s): J18.9 - PNEUMONIA, UNSPECIFIED ORGANISM Status: Acute (2) DM type 2 (diabetes mellitus, type 2) Status: Chronic Qualifiers: Diabetes mellitus residential insulin use: without residential use (3) Hypothyroidism Code(s): E03.9 - HYPOTHYROIDISM, UNSPECIFIED Status: Chronic Qualifiers: Hypothyroidism type: unspecified Qualified Code(s): E03.9 - Hypothyroidism , unspecified (4) Obesity (BMI 30.0-34.9) Code(s): E66.9 - OBESITY, UNSPECIFIED Status: Chronic (5) Physical deconditioning Code(s): R53.81 - OTHER MALAISE Status: Acute - Plan is on zithromax and cefipime, nebs prn. blood, urine cultures are -ve csf no signs of infection viral pcr is -ve continue lipitor, alogliptin, metformin, neurontin and synthroid hemostable PT eval, to amb as tolerated dc plan in am if ambulating well
[2019-04-18] MEDS: Sodium Chloride 0.9% 1,000 ML IV SCH (11:21)
[2019-04-18] MEDS ORDERED: Albuterol Sulfate 1.25 MG/3 ML NEB NEB PRN (13:45)
--- NOTE | 2019-04-18 13:46 | PRG ---
DATE OF SERVICE: 04/18/2019 SUBJECTIVE: Slowly improving. Still with some coughing spells and has started to make some sputum now kind of whitish. Also volunteer this pain that she has had for the past 3 months in the right lower quadrant about 5/10. No headaches. No visual symptoms. Mild dyspnea. No genitourinary symptoms. OBJECTIVE: VITAL SIGNS: She is afebrile, blood pressure 120/60, pulse 61, and O2 saturation 91% to 93%. SKIN: Normal. HEENT: Ocular movements conjugate. Oral cavity normal. LUNGS: With improvement in the auscultation with less crackles than previously noted. A little bit of wheezing. ABDOMEN: Soft with no tenderness. EXTREMITIES: No joint inflammatory activity. LABORATORY DATA: White cell count 11, hemoglobin 12, platelets 123. No new microbiology information. ASSESSMENT AND DISCUSSION: Type 2 diabetes, neck fusion, on chronic suppressive amoxicillin, and pneumonia community-acquired. Probably ready to go home tomorrow on either doxycycline or levofloxacin. Duration of therapy after discharge, another 4 to 5 days approximately. The pain in the right lower quadrant of unclear etiology in view of the negative CT of abdomen and pelvis. It could be referred from the pneumonia, but since it has been there for 3 months, the other possibility would be radiculopathy, could be something associated with amoxicillin intake, maybe a little colitis and may need evaluation for that if it persists. Job ID: [id number]
[2019-04-18] MEDS: Azithromycin 500 MG in Sodium Chloride 0.9% 250 ML 250 ML IVPB SCH (18:07)
[2019-04-18] MEDS: Atorvastatin Calcium 40 MG TAB PO SCH (19:29)
[2019-04-19] MEDS: HYDROcodone/Acetaminophen 5/325 mg Tablet PO PRN (04:05)
[2019-04-19] MEDS: Benzonatate 100 MG CAP PO PRN (04:05)
[2019-04-19] MEDS: Cefepime 2 GM in Sodium Chloride 0.9% 100 ML IVPB SCH (04:06)
[2019-04-19] MEDS: Levothyroxine Sodium 112 MCG TAB PO SCH (04:06)
[2019-04-19] MEDS: Guaifenesin DM 100-10/5 ML UDCUP PO PRN (04:06)
[2019-04-19] MEDS: Mometasone/Formoterol 120 PUFF INHALER INH SCH (06:49)
[2019-04-19 07:25] VITALS: BP 134/75; TEMP 98.1
[2019-04-19] MEDS: metFORMIN 500 MG TAB PO SCH (08:38)
[2019-04-19] MEDS: Alogliptin 25 MG TAB PO SCH (08:39)
[2019-04-19] MEDS: Gabapentin 400 MG CAP PO SCH (08:39)
[2019-04-19] MEDS: Estradiol 1 MG TAB PO SCH (08:39)
[2019-04-19] MEDS: Calcium Carbonate 500 MG TAB PO SCH (09:03)
[2019-04-19] MEDS ORDERED: Cefepime 2 GM in Sodium Chloride 0.9% 100 ML IVPB SCH (11:00)
--- NOTE | 2019-04-19 14:35 | DIS ---
DATE OF ADMISSION: 04/14/2019 DATE OF DISCHARGE: 04/19/2019 DISCHARGE DISPOSITION: Home. PRIMARY DISCHARGE DIAGNOSIS: Pneumonia with sepsis, resolving. SECONDARY DISCHARGE DIAGNOSES: Diabetes mellitus type 2, obesity, hypothyroidism. PROCEDURES DONE DURING HOSPITALIZATION: CT brain without contrast done showed no acute intracranial abnormality. CT of the abdomen and pelvis with contrast done showed no acute findings. Initial chest x-ray portable done showed no active intrathoracic disease was seen. X-ray of pelvis showed no evidence of fracture. CT cervical spine showed no fracture. CT chest done on 04/16/2019 showed findings suggestive of pneumonia. There was greater involvement of perihilar densities in the right upper lobe. Respiratory virus panel PCR was nonreactive. Urine culture, no growth. CSF fluid culture showed no growth in 3 days. One of two blood cultures grew Micrococcus and Kocuria, likely contaminant. Influenza A and B antigens were negative. White count of 11, H and H 12 and 35, platelet count 123. MCV of 101 with 84% neutrophils. TSH 2.48. BUN 13, creatinine 0.7, magnesium 1.4. AST, ALT, alkaline phosphatase within normal limits. Albumin 3.9, total bilirubin is 1.0. CSF tube #4 was colorless and clear. There is no wbc or rbc seen. Tube #2 showed a glucose of 86 mg/dL and total protein of 33 mg/dL. DISCHARGE MEDICATIONS: 1. Levaquin 500 mg p.o. daily for another 4 days. 2. Albuterol inhaler q.6 hourly p.r.n. 3. Januvia 100 mg p.o. daily. 4. Metformin 500 mg p.o. twice daily. 5. Synthroid 112 mcg p.o. daily. 6. Gabapentin 400 mg p.o. daily. 7. Estradiol 1 tablet vaginal on Tuesdays and . 8. Calcium 500 mg p.o. daily. 9. Lipitor 40 mg p.o. daily. 10. Amoxicillin 500 mg p.o. twice daily, which she takes chronically. ALLERGIES: NO KNOWN DRUG ALLERGIES. INPATIENT CONSULT: Dr. Lee for Infectious Disease. BRIEF COURSE DURING HOSPITALIZATION: The patient initially was brought to emergency room after she had a fall and was confused. She is actually from [facility] and was visiting family here. In view of this history, the patient has had a complete workup done, which have not revealed any fractures on the imaging studies. The patient had a temperature of 102 on arrival and was essentially admitted for sepsis workup. Initial chest x-ray did not reveal any infiltrate. After hydration, a subsequent CT chest done on the showed findings suggestive of pneumonia. Her antibiotics were switched over to Zithromax and cefepime. This has been transitioned to oral Levaquin at the time of discharge. She was evaluated by Dr. Lee for Infectious Disease. The patient was taking amoxicillin twice daily as part of suppressive protocol for history of staph infection in the past in the C-spine. She has remained hemodynamically stable. The patient is ambulating in the hallway and eating well prior to discharge. Please note I have seen and examined the patient on the day of discharge. The patient needs to follow up with her primary care physician in [facility] in a week. The patient can also talk to her primary care physician and set up home health. Job ID: [id number] MTDD
== END 2019-04-19 13:25 | disposition home or self-care (01) | DRG 871 ==
LOC: ERS 19:26 → T4-B 23:56
PROVIDERS: ADMIT Internal Medicine; ATTEND Internal Medicine
PROC: 009U3ZX Drainage of Spinal Canal, Percutaneous Approach, Diagnostic (ICD-10-PCS; principal; 2019-04-16)
DX: A41.9 Sepsis, unspecified organism (principal); J18.9 Pneumonia, unspecified organism; G93.41 Metabolic encephalopathy; E11.9 Type 2 diabetes mellitus without complications; E78.5 Hyperlipidemia, unspecified; G89.29 Other chronic pain; F32.9 Major depressive disorder, single episode, unspecified; E03.9 Hypothyroidism, unspecified; Z90.710 Acquired absence of both cervix and uterus; Z90.49 Acquired absence of other specified parts of digestive tract; Z79.899 Other long term (current) drug therapy; E66.9 Obesity, unspecified; Z98.1 Arthrodesis status; Z68.34 Body mass index [BMI] 34.0-34.9, adult
CPT/HCPCS: 36415; 36416; 51701; 62270; 70450; 71045; 71250; 72125; 72170; 74177; 80048; 80053; 80202; 81003; 81015; 82550; 82945; 83605; 83735; 84157; 84443; 85025; 87040; 87070; 87077; 87086; 87149; 87205; 87633; 87804; 89051; 93005; 94640; 94664; 96361; 96365; 96375; J0456; J0692; J0696; J3370; J3490; J7050; Q9967